=== PATIENT | female | born 1940 | race Caucasian/White ===

== ENCOUNTER 2017-01-31 18:39 | Observation (INO) | payer MEDICARE, BC ==
--- NOTE | 2017-01-31 19:05 | EKG REPORT ---
SEVERITY:- OTHERWISE NORMAL ECG - SINUS RHYTHM VENTRICULAR PREMATURE COMPLEX : Confirmed by: Mercedez Simms MD 31-Jan-2017 19:05:30
[2017-01-31] MEDS ORDERED: NITROGLYCERIN 0.4 MG/TAB 25 TAB/BOTTLE SL ONE (20:38)
[2017-01-31] MEDS ORDERED: ASPIRIN 81 MG TABLET, CHEWABLE PO ONE (20:38)
--- NOTE | 2017-01-31 20:38 | ER Document Report ---
ED Medical Screen (RME) - General Chief Complaint: Chest Pain Stated Complaint: CHEST PAIN Mode of Arrival: Ambulatory Information source: Patient TRAVEL OUTSIDE OF THE [place] IN LAST 30 DAYS: No - HPI Onset: This evening - BEFORE SUPPER Onset/Duration: Sudden, Constant Quality of pain: Other - "NERVOUS" Severity: Mild Associated Symptoms: Chest pain, Nausea. denies: Shortness of breath, Sweating Exacerbated by: Denies Relieved by: Denies Similar symptoms previously: Yes - WITH HIGH BP Recently seen / treated by doctor: No - Related Data Smoking: Non-smoker Frequency of alcohol use: None Drug Abuse: None Allergies/Adverse Reactions: No Known Allergies Allergy (Verified 07/14/12 09:53) Past Medical History - General Information source: Patient - Social History Cigarette use (# per day): No Chew tobacco use (# tins/day): No Frequency of alcohol use: None Drug Abuse: None Lives with: Family Family history: Hypertension - Past Medical History Cardiac Medical History: Reports: Hx Hypertension Denies: Hx Heart Attack Pulmonary Medical History: Denies: Hx Asthma Neurological Medical History: Denies: Hx Cerebrovascular Accident, Hx Seizures Endocrine Medical History: Reports: None Renal/ Medical History: Denies: Hx Peritoneal Dialysis GI Medical History: Denies: Hx Hepatitis, Hx Hiatal Hernia, Hx Ulcer Infectious Medical History: Denies: Hx Hepatitis Past Surgical History: Denies: Hx Hysterectomy, Hx Mastectomy, Hx Open Heart Surgery, Hx Pacemaker Review of Systems - Review of Systems Constitutional: No symptoms reported EENT: No symptoms reported Cardiovascular: See HPI Respiratory: No symptoms reported Gastrointestinal: See HPI Genitourinary: No symptoms reported Female Genitourinary: Post menopausal Musculoskeletal: No symptoms reported Neurological/Psychological: No symptoms reported Physical Exam - Vital signs Vitals: Temp Pulse BP Pulse Ox 97.8 F 85 188/92 H 99 01/31/17 19:34 01/31/17 19:34 01/31/17 19:34 01/31/17 19:34 Interpretation: Hypertensive. No: Tachycardic, Tachypneic Course - Vital Signs Vital signs: Temp Pulse Resp BP Pulse Ox 97.8 F 85 188/92 H 99 01/31/17 19:34 01/31/17 19:34 01/31/17 19:34 01/31/17 19:34
[2017-01-31 20:59] LABS: ABSOLUTE BASOPHILS # (AUTO) 0.1 10^3/uL (0.0-0.2); ABSOLUTE EOSINOPHILS # (AUTO) 0.1 10^3/uL (0.0-0.6); ABSOLUTE LYMPHOCYTES (AUTO) 1.2 10^3/uL (0.5-4.7); ABSOLUTE MONOCYTES (AUTO) 0.6 10^3/uL (0.1-1.4); ABSOLUTE NEUT (AUTO) 5.3 10^3/uL (1.7-8.2); BASOPHILS % (AUTO) 0.8 % (0-2); EOSINOPHILS % (AUTO) 0.9 % (0-6); HEMATOCRIT 37.7 % (36.0-47.0); HEMOGLOBIN 12.5 g/dL (12.0-15.5); HGB HCT DIFFERENCE -0.2; LYMPHOCYTES % (AUTO) 16.4 % (13-45); MEAN CORPUSCULAR HEMOGLOBIN 30.6 pg (27.0-33.4); MEAN CORPUSCULAR HGB CONC 33.1 g/dL (32.0-36.0); MEAN CORPUSCULAR VOLUME 93 fl (80-97); MONOCYTES % (AUTO) 7.8 % (3-13); RED BLOOD COUNT 4.06 10^6/uL (3.72-5.28); RED CELL DISTRIBUTION WIDTH 12.7 % (11.5-14.0); SEGMENTED NEUTROPHILS % (AUTO) 74.1 % (42-78); WHITE BLOOD COUNT 7.1 10^3/uL (4.0-10.5)
[2017-01-31 21:04] LABS: APPEARANCE,URINE CLEAR; BILIRUBIN,URINE NEGATIVE (NEGATIVE); GLUCOSE, URINE NEGATIVE (NEGATIVE); KETONES,URINE NEGATIVE (NEGATIVE); LEUKOCYTE ESTERASE,URINE NEGATIVE (NEGATIVE); NITRITE,URINE NEGATIVE (NEGATIVE); PROTEIN,URINE NEGATIVE (NEGATIVE); URINE SPECIFIC GRAVITY 1.004; UROBILINOGEN,URINE NEGATIVE mg/dL (<2.0)
[2017-01-31 21:14] LABS: ALANINE AMINOTRANSFERASE 28 U/L (9-52); ALBUMIN 4.9 g/dL (3.5-5.0); ALKALINE PHOSPHATASE 124 U/L (38-126); ANION GAP 12 (5-19); ASPARTATE AMINO TRANSFERASE 24 U/L (14-36); BILIRUBIN,DIRECT 0.2 mg/dL (0.0-0.4); BILIRUBIN,TOTAL 0.5 mg/dL (0.2-1.3); BLOOD UREA NITROGEN 23 mg/dL (7-20); CARBON DIOXIDE 29 mmol/L (22-30); CHLORIDE 96 mmol/L (98-107); CREATINE KINASE 103 U/L (30-135); CREATININE RESULT 1.44 mg/dL (0.52-1.25); GLUCOSE 121 mg/dL (75-110); POTASSIUM 3.9 mmol/L (3.6-5.0); SODIUM 137.3 mmol/L (137-145); TOTAL PROTEIN 7.6 g/dL (6.3-8.2)
[2017-01-31 21:26] LABS: TROPONIN I < 0.012 ng/mL
[2017-02-01] MEDS ORDERED: NITROGLYCERIN 2% OINTMENT 1 GM PACKET TP ONE (01:05)
[2017-02-01] MEDS ORDERED: ASPIRIN 81 MG TABLET, CHEWABLE ONE (01:25)
--- NOTE | 2017-02-01 02:26 | ER Document Report ---
ED General - General Chief Complaint: Chest Pain Stated Complaint: CHEST PAIN Mode of Arrival: Ambulatory Notes: Patient is very pleasant 76 show female who presents with complaint of high blood pressure as well as feeling of pressure in her chest and also sensation as if she might have to belch. She says also with the high blood pressure she feels a sensation "going through her veins. She says the sensation is different than the sensation that she has no chest which feels more like a pressure type sensation in her chest. She's never had this sensation before. She says her blood pressures usually fairly well controlled with her blood pressure medications. She has not missed any dosages of her blood pressure medication. No recent changes in the dosage of her blood pressure medication. No recent fevers or infections. No trauma. No difficulty breathing. No other complaints at this time. No history of coronary artery disease. TRAVEL OUTSIDE OF THE [place] IN LAST 30 DAYS: No - Related Data Allergies/Adverse Reactions: No Known Allergies Allergy (Verified 07/14/12 09:53) Home Medications: Current Home Medications Anastrozole [Anastrozole] 1 tab PO DAILY 02/01/17 [History] Aspirin [Aspirin 81 mg Chewable Tablet] 81 mg PO DAILY 02/01/17 [History] Calcium Carb & Citrate/Vit D3 [Calcium + D3 ER Tablet] 1 tab PO DAILY 02/01/17 [ History] Cholecalciferol (Vitamin D3) [Vitamin D3 1000 Unit Tablet] 1 tab PO DAILY [History] Citalopram Hydrobromide [Celexa 20 mg Tablet] 1 tab PO BID 02/01/17 [History] Lactobac Cmb #3/Fos/Pantethine [Probiotic & Acidophilus Cap] 1 cap PO DAILY 02/14 [History] Valsartan/Hydrochlorothiazide [Diovan Hct 160-12.5 mg Tab] 1 tab PO DAILY [History] Zolpidem Tartrate [Zolpidem Tartrate] 1 tab PO QHS 02/01/17 [History] Past Medical History - General Information source: Patient - Social History Smoking Status: Never Smoker Cigarette use (# per day): No Chew tobacco use (# tins/day): No Frequency of alcohol use: None Drug Abuse: None Lives with: Family Family History: Reviewed & Not Pertinent Patient has suicidal ideation: No Patient has homicidal ideation: No - Past Medical History Cardiac Medical History: Reports: Hx Hypertension Denies: Hx Heart Attack Pulmonary Medical History: Denies: Hx Asthma Neurological Medical History: Denies: Hx Cerebrovascular Accident, Hx Seizures Endocrine Medical History: Reports: None Renal/ Medical History: Denies: Hx Peritoneal Dialysis GI Medical History: Denies: Hx Hepatitis, Hx Hiatal Hernia, Hx Ulcer Infectious Medical History: Denies: Hx Hepatitis Past Surgical History: Denies: Hx Hysterectomy, Hx Mastectomy, Hx Open Heart Surgery, Hx Pacemaker - Immunizations Hx Diphtheria, Pertussis, Tetanus Vaccination: No Review of Systems - Review of Systems Notes: My Normal Review Basic REVIEW OF SYSTEMS: CONSTITUTIONAL : Denies fever, chills, or sweats. Denies recent illness. EENT: Denies eye, ear, throat, or mouth pain or symptoms. Denies nasal or sinus congestion. CARDIOVASCULAR: Chest pressure RESPIRATORY: Denies cough, cold, or chest congestion. Denies shortness of breath, difficulty breathing, or wheezing. GASTROINTESTINAL: Denies abdominal pain. Denies nausea, vomiting, or diarrhea. Denies constipation. Last BM: MUSCULOSKELETAL: Denies neck or back pain or joint pain or swelling. SKIN: Denies rash or skin lesions. NEUROLOGICAL: Denies altered mental status or loss of consciousness. Denies headache. Denies weakness or paralysis or loss of use of either side. Denies problems with gait or speech. Denies sensory or motor loss. ALL OTHER SYSTEMS REVIEWED AND NEGATIVE. Physical Exam - Vital signs Vitals: Temp Pulse BP Pulse Ox 97.8 F 85 188/92 H 99 01/31/17 19:34 01/31/17 19:34 01/31/17 19:34 01/31/17 19:34 - Notes Notes: General Appearance: Well nourished, alert, cooperative, no acute distress, no obvious discomfort. Well-appearing. Vitals: reviewed, See vital signs table. Head: no swelling or tenderness to the head Eyes: PERRL, EOMI, Conjuctiva clear Mouth: No decreasd moisture Lungs: No wheezing, No rales, No rhonci, No accessory muscle use, good air exchange bilaterally. Heart: Normal rate, Regular rythm, No murmur, no rub Abdomen: Normal BS, soft, No rigidity, No abdominal tenderness, No guarding, no rebound, no abdominal masses, no organomegaly Extremities: strength 5/5 in all extremities, good pulses in all extremities, no swelling or tenderness in the extremities, no edema. Skin: warm, dry, appropriate color, no rash Neuro: speech clear, oriented x 3, normal affect, responds appropriately to questions. Course - Vital Signs Vital signs: Temp Pulse Resp BP Pulse Ox 97.8 F 76 16 144/67 H 100 02/01/17 05:36 02/01/17 05:36 02/01/17 05:36 02/01/17 05:36 02/01/17 05:36 - Laboratory Result Diagrams: 01/31/17 20:45 01/31/17 20:45 Laboratory results interpreted by me: 01/31/17 01/31/17 20:45 20:45 Chloride 96 L BUN 23 H Creatinine 1.44 H Est GFR ( Amer) 43 L Est GFR (Non-Af Amer) 35 L Glucose 121 H Urine Blood MODERATE H - Transfer of Care Notes: 02/01/17 05:[address] Nit[address] and the patient. This did help with the pressure in her chest. It is slowly decreasing her diastolic blood pressure. Patient appears have some hypertensive urgency. She describes her chest pain as more of a pressure type sensation and also some indigestion comparison that she feels like she has to belch but cannot. She does not have anything else to suggest that Windy acid reflux. He met she has this in conjunction with her high blood pressure to think is appropriate to do workup for hypertensive urgency with associated chest pressure. Patient is agreeable to staying. I did speak with the hospitalist who agrees to admit the patient. Dictation of this chart was performed using voice recognition software; therefore, there may be some unintended grammatical errors. Discharge - Discharge Clinical Impression: Chest pressure Hypertension Qualifiers: Hypertension type: essential hypertension Qualified Code(s): I10 - Essential ( primary) hypertension Admitting Provider: Hospitalist Unit Admitted: Telemetry
[2017-02-01] MEDS ORDERED: NITROGLYCERIN 0.4 MG/TAB 25 TAB/BOTTLE SL PRN (02:27)
[2017-02-01] MEDS ORDERED: HYDRALAZINE HCL INJ/PF 20 MG/1 ML SDV IV PRN (02:30)
--- NOTE | 2017-02-01 04:34 | PDOC H&P ---
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 In the emergency room she is evaluated and found to have a blood pressure of over 200 systolic, receiving nitroglycerin dropping her blood pressure to 170/80 and relief of symptoms during this time the emergency room she's had a single episode with radiation to the back and she's referred to the hospitalist for admission she denies recent change in medications or diet. She does suffer from significant grief as she is recently and poor health of her close friends. Past Medical History Cardiac Medical History: Reports: Hypertension Denies: Myocardial Infarction Pulmonary Medical History: Denies: Asthma Neurological Medical History: Denies: Seizures Endocrine Medical History: Reports: None GI Medical History: Denies: Hepatitis, Hiatal Hernia Hematology: Denies: Anemia, Sickle Cell Disease Past Surgical History Past Surgical History: Denies: Amputation, Hysterectomy, Mastectomy, Pacemaker Social History Information Source: Patient Lives with: Family Smoking Status: Never Smoker Frequency of Alcohol Use: None Past Social History Note: Patient consumes approximately 4 caffeinated beverages per day admits trouble with sleep, depression and grief - Advance Directive Resuscitation Status: Full Code Family History Family History: Hypertension Parental Family History Reviewed: Yes Children Family History Reviewed: Yes Sibling(s) Family History Reviewed.: Yes Medication/Allergy Home Medications: Lovastatin [Mevacor] 1 tab PO DAILY 07/14/12 Anastrozole [Anastrozole] 1 tab PO DAILY 02/01/17 Aspirin [Aspirin 81 mg Chewable Tablet] 81 mg PO DAILY 02/01/17 Calcium Carb & Citrate/Vit D3 [Calcium + D3 ER Tablet] 1 tab PO DAILY 02/01/17 Cholecalciferol (Vitamin D3) [Vitamin D3 1000 Unit Tablet] 1 tab PO DAILY Citalopram Hydrobromide [Celexa 20 mg Tablet] 1 tab PO BID 02/01/17 Lactobac Cmb #3/Fos/Pantethine [Probiotic & Acidophilus Cap] 1 cap PO DAILY 02/14 Valsartan/Hydrochlorothiazide [Diovan Hct 160-12.5 mg Tab] 1 tab PO DAILY Zolpidem Tartrate [Zolpidem Tartrate] 1 tab PO QHS 02/01/17 Allergies/Adverse Reactions: No Known Allergies Allergy (Verified 07/14/12 09:53) Review of Systems Constitutional: ABSENT: chills, fever(s), headache(s), weight gain, weight loss Eyes: ABSENT: visual disturbances Ears: ABSENT: hearing changes Cardiovascular: ABSENT: chest pain, dyspnea on exertion, edema, orthropnea, palpitations Respiratory: ABSENT: cough, hemoptysis Gastrointestinal: ABSENT: abdominal pain, constipation, diarrhea, hematemesis, hematochezia, nausea, vomiting Genitourinary: ABSENT: dysuria, hematuria Musculoskeletal: ABSENT: joint swelling Integumentary: ABSENT: rash, wounds Neurological: ABSENT: abnormal gait, abnormal speech, confusion, dizziness, focal weakness, syncope Psychiatric: PRESENT: depression, other - Grief secondary to Recently and friends in poor health. ABSENT: anxiety, homidical ideation, suicidal ideation Endocrine: ABSENT: cold intolerance, heat intolerance, polydipsia, polyuria Hematologic/Lymphatic: ABSENT: easy bleeding, easy bruising Physical Exam Vital Signs: Temp Pulse Resp BP Pulse Ox 97.8 F 88 13 163/81 H 96 01/31/17 19:34 02/01/17 00:22 02/01/17 02:31 02/01/17 03:01 02/01/17 03:00 General appearance: PRESENT: no acute distress, well-developed, well-nourished Head exam: PRESENT: atraumatic, normocephalic Eye exam: PRESENT: conjunctiva pink, EOMI, PERRLA. ABSENT: scleral icterus Ear exam: PRESENT: normal external ear exam Mouth exam: PRESENT: moist, tongue midline Neck exam: ABSENT: carotid bruit, JVD, lymphadenopathy, thyromegaly Respiratory exam: PRESENT: clear to auscultation dale. ABSENT: rales, rhonchi, wheezes Cardiovascular exam: PRESENT: RRR. ABSENT: diastolic murmur, rubs, systolic murmur Pulses: PRESENT: normal dorsalis pedis pul Vascular exam: PRESENT: normal capillary refill GI/Abdominal exam: PRESENT: normal bowel sounds, soft. ABSENT: distended, guarding, mass, organolmegaly, rebound, tenderness Rectal exam: PRESENT: deferred Extremities exam: PRESENT: full ROM. ABSENT: calf tenderness, clubbing, pedal edema Neurological exam: PRESENT: alert, awake, oriented to person, oriented to place , oriented to time, oriented to situation, CN II-XII grossly intact. ABSENT: motor sensory deficit Psychiatric exam: PRESENT: appropriate affect, normal mood. ABSENT: homicidal ideation, suicidal ideation Skin exam: PRESENT: dry, intact, warm. ABSENT: cyanosis, rash Results Impressions: Chest X-Ray 01/31/17 20:39 IMPRESSION: NO ACUTE RADIOGRAPHIC FINDING IN THE CHEST. Assessment & Plan - Diagnosis (1) Hypertensive emergency Is this a current diagnosis for this admission?: YesPlan: Likely multifactorial secondary to underlying hypertension and grief that said I 'll optimize her medications on a when necessary basis and anterior home regiment and otherwise evaluate for acute coronary syndrome and risk factors for coronary artery disease (2) Chest pressure Is this a current diagnosis for this admission?: YesPlan: Please see #1 (3) Grief Is this a current diagnosis for this admission?: YesPlan: Consider increased SSRI dose versus referral to mental health, denies homicidal or suicidal ideation - Time Time Spent: 30 to 50 Minutes - Inpatient Certification Medical Necessity: Need Close Monitoring Due to Risk of Patient Decompensation
[2017-02-01 05:44] LABS: Direct HDL 102 mg/dL (>40); TRIGLYCERIDES 79 mg/dL (<150)
[2017-02-01 05:55] LABS: DIRECT LDL 87 mg/dL (<100)
[2017-02-01 05:57] LABS: CREATINE KINASE MB 0.42 ng/mL (<4.55); TROPONIN I 0.029 ng/mL
[2017-02-01] MEDS: LOSARTAN POTASSIUM 50 MG TABLET PO SCH (09:32)
[2017-02-01] MEDS ORDERED: CITALOPRAM HYDROBROMIDE 20 MG TABLET PO SCH (10:00)
[2017-02-01] MEDS ORDERED: (PENDING PHARMACY ID) (Valsartan/Hydrochlorothiazide [Diovan Hct 160-12.5 Mg Tab] 1 TAB) PO SCH (10:00)
[2017-02-01] MEDS ORDERED: NORMAL SALINE 1000 ML 1,000 ML IV PRN (10:41)
[2017-02-01] MEDS ORDERED: REGADENOSON INJ 0.4 MG/5 ML DISP.SYRIN IV ONE (10:58)
[2017-02-01] MEDS ORDERED: AMINOPHYLLINE INJ/PF 250 MG/10 ML SDV IV ONE (10:58)
[2017-02-01] MEDS ORDERED: SIMETHICONE 40 MG/0.6 ML DROPS 30ML PO ONE (11:30)
[2017-02-01] MEDS ORDERED: MAG HYDROX/AL HYDROX/SIMETH SUSP 30 ML UDCUP PO ONE (11:30)
[2017-02-01] MEDS ORDERED: SIMETHICONE 80 MG TAB.CHEW PO ONE (11:30)
[2017-02-01] MEDS ORDERED: METOCLOPRAMIDE HCL ORAL SOLN 10 MG/10 ML UDCUP PO ONE (11:30)
[2017-02-01] MEDS ORDERED: LIDOCAINE 2% VISCOUS SOLN 20 ML UDCUP PO ONE (11:30)
[2017-02-01 12:11] LABS: CREATINE KINASE MB 0.44 ng/mL (<4.55); TROPONIN I 0.014 ng/mL
[2017-02-01] MEDS ORDERED: TRAMADOL HCL 50 MG TABLET PO PRN (12:36)
--- NOTE | 2017-02-01 13:11 | EKG REPORT ---
SEVERITY:- BORDERLINE ECG - SINUS RHYTHM BORDERLINE PROLONGED QT INTERVAL : Confirmed by: Mercedez Simms MD 01-Feb-2017 13:10:12
--- NOTE | 2017-02-01 15:20 | PDOC PROGRESS REPORT ---
Subjective Progress Note for:: 02/01/17 Subjective:: The patient was seen earlier today on rounds. The patient notes persistent indigestion. The patient also notes frequent belching. The patient admits to intermittent sensation of "full body heat" which prompted her to come to the emergency department for evaluation. The patient admits to persistent nausea. The patient denies any vomiting, diarrhea, shortness of breath, dizziness, heart palpitations, fevers, or chills. The patient has remained afebrile. Blood pressures have been in a good range. When prompted the patient voices no other concerns at this time. Review of systems: The rest of the review of systems is negative. Brief history: Patient was admitted overnight with symptoms of chest discomfort and tightness. A she gets significant symptoms that are consistent with gastric reflux as well. Patient has had a history of chemotherapy for previous breast cancer which has left her with an element of chronic kidney disease. The patient estimates her creatinine is around 1.2 range at baseline. The patient symptoms have persisted overnight. Physical Exam Vital Signs: Temp Pulse Resp BP Pulse Ox 98.0 F 85 17 136/70 H 100 02/01/17 11:22 02/01/17 11:22 02/01/17 11:22 02/01/17 11:22 02/01/17 11:22 Intake & Output 01/30/17 01/31/17 02/01/17 23:59 23:59 23:59 Intake Total 960 Balance 960 General appearance: PRESENT: no acute distress, cooperative, well-developed, well-nourished Head exam: PRESENT: atraumatic, normocephalic Eye exam: PRESENT: conjunctiva pink, EOMI, PERRLA. ABSENT: scleral icterus Ear exam: PRESENT: normal external ear exam Mouth exam: PRESENT: moist, tongue midline Neck exam: ABSENT: carotid bruit, JVD, lymphadenopathy, thyromegaly Respiratory exam: PRESENT: clear to auscultation dale, symmetrical, unlabored. ABSENT: rales, rhonchi, tachypnea, wheezes Cardiovascular exam: PRESENT: RRR. ABSENT: diastolic murmur, rubs, systolic murmur Pulses: PRESENT: normal dorsalis pedis pul Vascular exam: PRESENT: normal capillary refill GI/Abdominal exam: PRESENT: normal bowel sounds, soft. ABSENT: distended, guarding, mass, organolmegaly, rebound, tenderness Rectal exam: PRESENT: deferred Extremities exam: PRESENT: full ROM. ABSENT: calf tenderness, clubbing, pedal edema Neurological exam: PRESENT: alert, awake, oriented to person, oriented to place , oriented to time, oriented to situation, CN II-XII grossly intact. ABSENT: motor sensory deficit Psychiatric exam: PRESENT: appropriate affect, normal mood. ABSENT: homicidal ideation, suicidal ideation Skin exam: PRESENT: dry, intact, warm. ABSENT: cyanosis, rash Results Laboratory Results: Labs- Last Values WBC 7.1 10^3/uL (4.0-10.5) 01/31/17 20:45 RBC 4.06 10^6/uL (3.72-5.28) 01/31/17 20:45 Hgb 12.5 g/dL (12.0-15.5) 01/31/17 20:45 Hct 37.7 % (36.0-47.0) 01/31/17 20:45 MCV 93 fl (80-97) 01/31/17 20:45 MCH 30.6 pg (27.0-33.4) 01/31/17 20:45 MCHC 33.1 g/dL (32.0-36.0) 01/31/17 20:45 RDW 12.7 % (11.5-14.0) 01/31/17 20:45 Plt Count 245 10^3/uL (150-450) 01/31/17 20:45 Seg Neutrophils % 74.1 % (42-78) 01/31/17 20:45 Lymphocytes % 16.4 % (13-45) 01/31/17 20:45 Monocytes % 7.8 % (3-13) 01/31/17 20:45 Eosinophils % 0.9 % (0-6) 01/31/17 20:45 Basophils % 0.8 % (0-2) 01/31/17 20:45 Absolute Neutrophils 5.3 10^3/uL (1.7-8.2) 01/31/17 20:45 Absolute Lymphocytes 1.2 10^3/uL (0.5-4.7) 01/31/17 20:45 Absolute Monocytes 0.6 10^3/uL (0.1-1.4) 01/31/17 20:45 Absolute Eosinophils 0.1 10^3/uL (0.0-0.6) 01/31/17 20:45 Absolute Basophils 0.1 10^3/uL (0.0-0.2) 01/31/17 20:45 Sodium 137.3 mmol/L (137-145) 01/31/17 20:45 Potassium 3.9 mmol/L (3.6-5.0) 01/31/17 20:45 Chloride 96 mmol/L (98-107) L 01/31/17 20:45 Carbon Dioxide 29 mmol/L (22-30) 01/31/17 20:45 Anion Gap 12 (5-19) 01/31/17 20:45 BUN 23 mg/dL (7-20) H 01/31/17 20:45 Creatinine 1.44 mg/dL (0.52-1.25) H 01/31/17 20:45 Est GFR ( Amer) 43 (>60) L 01/31/17 20:45 Est GFR (Non-Af Amer) 35 (>60) L 01/31/17 20:45 Glucose 121 mg/dL (75-110) H 01/31/17 20:45 Calcium 10.0 mg/dL (8.4-10.2) 01/31/17 20:45 Total Bilirubin 0.5 mg/dL (0.2-1.3) 01/31/17 20:45 Direct Bilirubin 0.2 mg/dL (0.0-0.4) 01/31/17 20:45 Indirect Bilirubin Not Reportable 01/31/17 20:45 Neonat Total Bilirubin Not Reportable 01/31/17 20:45 AST 24 U/L (14-36) 01/31/17 20:45 ALT 28 U/L (9-52) 01/31/17 20:45 Alkaline Phosphatase 124 U/L (38-126) 01/31/17 20:45 Creatine Kinase 103 U/L (30-135) 01/31/17 20:45 CK-MB (CK-2) 0.44 ng/mL (<4.55) 02/01/17 11:12 Troponin I 0.014 ng/mL 02/01/17 11:12 Total Protein 7.6 g/dL (6.3-8.2) 01/31/17 20:45 Albumin 4.9 g/dL (3.5-5.0) 01/31/17 20:45 Triglycerides 79 mg/dL (<150) 02/01/17 05:04 Cholesterol 217.20 mg/dL (0-200) H 02/01/17 05:04 LDL Cholesterol Direct 87 mg/dL (<100) 02/01/17 05:04 VLDL Cholesterol 16.0 mg/dL (10-31) 02/01/17 05:04 HDL Cholesterol 102 mg/dL (>40) 02/01/17 05:04 Urine Color COLORLESS 01/31/17 20:45 Urine Appearance CLEAR 01/31/17 20:45 Urine pH 7.0 (5.0-9.0) 01/31/17 20:45 Ur Specific Humphrey 1.004 01/31/17 20:45 Urine Protein NEGATIVE mg/dL (NEGATIVE) 01/31/17 20:45 Urine Glucose (UA) NEGATIVE mg/dL (NEGATIVE) 01/31/17 20:45 Urine Ketones NEGATIVE mg/dL (NEGATIVE) 01/31/17 20:45 Urine Blood MODERATE (NEGATIVE) H 01/31/17 20:45 Urine Nitrite NEGATIVE (NEGATIVE) 01/31/17 20:45 Urine Bilirubin NEGATIVE (NEGATIVE) 01/31/17 20:45 Urine Urobilinogen NEGATIVE mg/dL (<2.0) 01/31/17 20:45 Ur Leukocyte Esterase NEGATIVE (NEGATIVE) 01/31/17 20:45 Urine WBC (Auto) 2 /HPF 01/31/17 20:45 Urine RBC (Auto) 5 /HPF 01/31/17 20:45 Urine Bacteria (Auto) TRACE /HPF 01/31/17 20:45 Squamous Epi Cells Auto <1 /HPF 01/31/17 20:45 Urine Mucus (Auto) RARE /LPF 01/31/17 20:45 Urine Ascorbic Acid NEGATIVE (NEGATIVE) 01/31/17 20:45 Impressions: Chest X-Ray 01/31/17 20:39 IMPRESSION: NO ACUTE RADIOGRAPHIC FINDING IN THE CHEST. Assessment & Plan - Diagnosis (1) Chest pressure Is this a current diagnosis for this admission?: YesPlan: Will observe the patient continues telemetry unit, obtain serial cardiac enzymes , repeat EKG, and obtain lipid panel in the a.m. Given the patient's risk factors will schedule for Cardiolite stress test. (2) Hypertensive emergency Is this a current diagnosis for this admission?: YesPlan: Have encouraged medical compliance. Blood pressures are much improved this time with resumption of home medications (3) Chronic kidney disease, stage III (moderate) Is this a current diagnosis for this admission?: YesPlan: The patient does admit to decrease in oral intake will hydrate with a liter of fluids and follow. (4) GERD (gastroesophageal reflux disease) Qualifiers: Esophagitis presence: esophagitis presence not specified Qualified Code(s): K21.9 - Gastro-esophageal reflux disease without esophagitis Is this a current diagnosis for this admission?: YesPlan: Given a GI cocktail additional simethicone and start the patient on twice a day PPI therapy (5) Grief Is this a current diagnosis for this admission?: Yes - Time Time Spent with patient: on this visit including assessment, plan, physical examination, family meeting, grief discussion, specialty collaboration, and patient education is 60 minutes. Time Spent with patient: 35 or more minutes Medications reviewed and adjusted accordingly: Yes Anticipated discharge: Home Within: within 24 hours Disposition: The patient is a full code. Pending patient's symptomatology and diagnostic findings will reevaluate in the a.m.
[2017-02-01 18:05] LABS: CREATINE KINASE MB 0.33 ng/mL (<4.55)
[2017-02-01] MEDS: LANSOPRAZOLE 30 MG TAB.RAP.DR PO SCH (18:06)
[2017-02-01] MEDS: CITALOPRAM HYDROBROMIDE 20 MG TABLET PO SCH (18:06)
[2017-02-01 18:09] LABS: TROPONIN I < 0.012 ng/mL
[2017-02-01] MEDS ORDERED: LOVASTATIN 20 MG PO SCH (22:00)
[2017-02-01] MEDS ORDERED: ANASTROZOLE 1 MG TABLET PO SCH (22:00)
[2017-02-01] MEDS ORDERED: ATORVASTATIN CALCIUM 10 MG TABLET PO SCH (22:00)
[2017-02-01] MEDS ORDERED: DIPHENHYDRAMINE HCL 25 MG CAPSULE PO SCH (22:00)
[2017-02-02] MEDS: LANSOPRAZOLE 30 MG TAB.RAP.DR PO SCH (05:21)
[2017-02-02 05:27] LABS: ABSOLUTE EOSINOPHILS # (AUTO) 0.2 10^3/uL (0.0-0.6); ABSOLUTE LYMPHOCYTES (AUTO) 1.4 10^3/uL (0.5-4.7); ABSOLUTE MONOCYTES (AUTO) 0.6 10^3/uL (0.1-1.4); ABSOLUTE NEUT (AUTO) 2.3 10^3/uL (1.7-8.2); EOSINOPHILS % (AUTO) 4.1 % (0-6); HEMATOCRIT 32.1 % (36.0-47.0); HEMOGLOBIN 10.7 g/dL (12.0-15.5); LYMPHOCYTES % (AUTO) 30.8 % (13-45); MEAN CORPUSCULAR HEMOGLOBIN 30.8 pg (27.0-33.4); MEAN CORPUSCULAR HGB CONC 33.2 g/dL (32.0-36.0); MEAN CORPUSCULAR VOLUME 93 fl (80-97); MONOCYTES % (AUTO) 13.4 % (3-13); RED BLOOD COUNT 3.47 10^6/uL (3.72-5.28); SEGMENTED NEUTROPHILS % (AUTO) 50.7 % (42-78); WHITE BLOOD COUNT 4.6 10^3/uL (4.0-10.5)
[2017-02-02] MEDS ORDERED: (PENDING PHARMACY ID) (Zolpidem Tartrate [Zolpidem Tartrate] 10 MG) PO PRN (09:57)
[2017-02-02] MEDS ORDERED: CHOLECALCIFEROL (D3) 1,000 UNIT TABLET PO SCH (10:00)
[2017-02-02] MEDS ORDERED: VALSARTAN 160 MG TABLET PO SCH (10:00)
[2017-02-02] MEDS ORDERED: CALCIUM CARBONATE 500 MG TABLET PO SCH (10:00)
[2017-02-02] MEDS ORDERED: LACTOBACILLUS ACIDOPHILUS 250 MG TAB PO SCH (10:00)
[2017-02-02] MEDS ORDERED: ASPIRIN 81 MG TABLET, ENT COATED PO SCH (10:00)
[2017-02-02] MEDS: LOSARTAN POTASSIUM 50 MG TABLET PO SCH (10:22)
[2017-02-02] MEDS: CITALOPRAM HYDROBROMIDE 20 MG TABLET PO SCH (10:23)
[2017-02-02] MEDS ORDERED: ZOLPIDEM TARTRATE 5 MG TABLET PO PRN (10:29)
[2017-02-02 12:37] VITALS: BP 129/59
--- NOTE | 2017-02-02 13:43 | DRAGON STRESS TEST REPORT ---
INTRAVENOUS LEXISCAN CARDIOLITE STRESS TEST USING SINGLE PHOTON EMMISION COMPUTERIZED TOMOGRAPHIC. DATE OF PROCEDURE: February 01, 2017 INDICATION : Chest pain CARDIAC RISK FACTORS: Hypertension, dyslipidemia RESTING EKG: Sinus rhythm, no Baseline ST segment changes noted STRESS EKG: No significant changes noted with LexiScan bolus REASON FOR TERMINATION: Protocol. PROCEDURE REPORT: Baseline heart rate 73 beats per minute with blood pressure of 124/57. Patient had no significant complaints. Heart rate at 2 minutes post bolus and 100 with a blood pressure of and 123/47. 3 minutes post bolus heart rate 92 with blood pressure of 124/49. No significant EKG changes were noted. Patient had no significant complaints during the procedure or postprocedure. Patient injected with Aminophyllin 75 mg at 3 minutes or later after Lexiscan bolus. CONCLUSIONS: Normal EKG and hemodynamic response to IV LexiScan. NUCLEAR DATA: At rest the patient was given 10.84 millicuries of technetium 99 sestamibi injected intravenously. As per protocol rest gated SPECT images were obtained. Subsequently the patient was given intravenous LexiScan at a dose of 0.4 mg in 5 mL intravenously, followed by flush with normal saline. Subsequently the stress dose of 31.2 millicuries of technetium 99 sestamibi was injected intravenously. As per protocol stress gated images were obtained. NUCLEAR INTERPRETATION: Both raw and processed data were used for interpretation. Visual, qualitative, computer-generated quantitative data was used. There was good myocardial uptake of technetium compound. Motion artifact and soft tissue attenuations were noted. Increased visceral uptake was noted. No definitive areas of transient perfusion defect noted. No definitive areas of fixed perfusion defect or scars noted. EKG gated imaging showed LV EF at 59 %, rest and stress gated EF similar visually. T. I D. ratio was 1.30. Lung heart ratio noted to be within normal limits 0.38. No significant extracardiac and abnormal radiotracer activities were noted. RV free wall uptake was noted to be WNL. IMPRESSION: Also refer to comments under nuclear interpretation. Also test results needs to be interpreted in the context of pretest probability. 1. There is no definitive scintigraphic evidence of LexiScan induced myocardial ischemia. 2. There is no definitive scintigraphic evidence of myocardial infarction/scar. 3. EKG gated imaging shows left ejection fraction of approximately 59 %. 4. Borderline transient ischemic dilatation was noted. This is felt to be not significant visually when images were properly matched. However would recommend close cardiology follow-up. Clinical correlation requested as occasionally single vessel disease or balanced ischemia could be missed. In approximately 10% of the cases Lexiscan may not cause adequate vasodilatory stress. RECOMMENDATIONS: Aggressive risk factor modification, medical therapy. Inability to exercise by itself can lead to increased cardiovascular event risks. Consider cardiology consultation and or follow-up if clinically indicated. I AM AVAILABLE FOR CARDIOLOGY CONSULTATION AND FOLLOWUP IF REQUESTED BY PMTwin Garrison M.D., VAISHALI [employer] senior systems engineer, Board certified in cardiovascular diseases, Nuclear cardiology, Echocardiography Cardiac CT and cardiac MRI Ph. [phone] [facility]
--- NOTE | 2017-02-02 16:16 | PDOC DISCHARGE SUMMARY ---
General - Admit/Disc Date/PCP Admission Date/Primary Care Provider: 02/01/17 02:27 ANAYA DRISCOLL NP Discharge Date: 02/02/17 - Discharge Diagnosis (1) Chest pressure Is this a current diagnosis for this admission?: YesSummary: Most likely related to GI origin. She will be started on omeprazole 40 mg daily follow-up with her primary care provider. She underwent Cardiolite stress test which was negative for ischemia. All troponins were negative 3. (2) Chronic kidney disease, stage III (moderate) Is this a current diagnosis for this admission?: YesSummary: Avoid nephrotoxic drugs and dosages (3) GERD (gastroesophageal reflux disease) Is this a current diagnosis for this admission?: YesSummary: Patient was started on omeprazole 40 mg daily I will follow-up with her primary (4) Grief Is this a current diagnosis for this admission?: YesSummary: Patient with recent loss of spouse. - Additional Information Resuscitation Status: Full Code Discharge Activity: Activity As Tolerated, Balance Activity w/Rest Home Medications: Anastrozole [Arimidex 1 mg Tablet] 1 mg PO QHS 02/01/17 Aspirin [Aspirin EC] 81 mg PO DAILY 02/01/17 Calcium 1200 Mg/Vitamin D3 1000 Iu 1 ea PO DAILY 02/01/17 Cholecalciferol (Vitamin D3) [Vitamin D3 2000 unit Tablet] 2,000 unit PO DAILY 02/01/17 Citalopram Hydrobromide [Celexa 20 mg Tablet] 20 mg PO BID 02/01/17 Cyanocobalamin (Vitamin B-12) [Vitamin B-12 Inj 1000 Mcg/1 ml Vial] 1,000 mcg IM .MONTHLY 02/01/17 Lovastatin [Mevacor] 20mg 1 ea PO QHS 02/01/17 Probiotic Acidophilus 100 Million 1 ea PO DAILY 02/01/17 Valsartan/Hydrochlorothiazide [Diovan Hct 160-12.5 mg Tab] 1 each PO DAILY 02/01 Zolpidem Tartrate [Zolpidem Tartrate] 10 mg PO HSP PRN 02/01/17 Citalopram Hydrobromide [Celexa 20 mg Tablet] 20 mg PO BID tablet 02/02/17 Omeprazole 40 mg PO DAILY #30 capsule. 02/02/17 History of Present Illness Patient complains of: Midsternal chest pressure and belching History of Present Illness: PRINCESS CROWLEY is a 76 year old female with a past medical history of dyslipidemia, remote breast cancer, depression and hypertension who been her usual state of health until approximately 8 hours prior to presentation having retrosternal chest tightness, without palpitations shortness of breath nausea vomiting and without obvious exacerbating or alleviating factors. In the emergency room she is evaluated and found to have a blood pressure of over 200 systolic, receiving nitroglycerin dropping her blood pressure to 170/80 and relief of symptoms during this time the emergency room she's had a single episode with radiation to the back and she's referred to the hospitalist for admission she denies recent change in medications or diet. She does suffer from significant grief as she is recently and poor health of her close friends. Hospital Course Hospital Course: Patient is a hospitalist service on telemetry. She had serial troponins which were all negative 3. She underwent Cardiolite stress testing which was negative. Symptoms sound more gastrointestinal in origin. We will start her on omeprazole 40 mg daily and follow-up with primary care provider. She had no further episodes of chest discomfort since admission. Physical Exam Vital Signs: Temp Pulse Resp BP Pulse Ox 97.6 F 67 16 129/59 H 100 02/02/17 15:18 02/02/17 15:18 02/02/17 15:18 02/02/17 15:18 02/02/17 15:18 Intake & Output 02/01/17 02/02/17 02/03/17 06:59 06:59 06:59 Intake Total 1360 Balance 1360 Weight 67.5 kg General appearance: PRESENT: no acute distress, well-developed, well-nourished Head exam: PRESENT: atraumatic, normocephalic Eye exam: PRESENT: conjunctiva pink, EOMI, PERRLA. ABSENT: scleral icterus Ear exam: PRESENT: normal external ear exam Mouth exam: PRESENT: moist, tongue midline Respiratory exam: PRESENT: clear to auscultation dale. ABSENT: rales, rhonchi, wheezes Cardiovascular exam: PRESENT: RRR. ABSENT: diastolic murmur, rubs, systolic murmur Pulses: PRESENT: normal dorsalis pedis pul GI/Abdominal exam: PRESENT: normal bowel sounds, soft. ABSENT: distended, guarding, mass, organolmegaly, rebound, tenderness Rectal exam: PRESENT: deferred Extremities exam: PRESENT: full ROM. ABSENT: calf tenderness, clubbing, pedal edema Neurological exam: PRESENT: alert, awake, oriented to person, oriented to place , oriented to time, oriented to situation, CN II-XII grossly intact. ABSENT: motor sensory deficit Psychiatric exam: PRESENT: appropriate affect, normal mood. ABSENT: homicidal ideation, suicidal ideation Skin exam: PRESENT: dry, intact, warm. ABSENT: cyanosis, rash Results Laboratory Results: 02/02/17 04:35 02/02/17 04:35 WBC 4.6 RBC 3.47 L Hgb 10.7 L Hct 32.1 L MCV 93 MCH 30.8 MCHC 33.2 RDW 13.0 Plt Count 207 Seg Neutrophils % 50.7 Lymphocytes % 30.8 Monocytes % 13.4 H Eosinophils % 4.1 Basophils % 1.0 Absolute Neutrophils 2.3 Absolute Lymphocytes 1.4 Absolute Monocytes 0.6 Absolute Eosinophils 0.2 Absolute Basophils 0.0 02/01/17 02/01/17 02/01/17 05:04 11:12 17:20 Creatine Kinase CK-MB (CK-2) 0.42 0.44 0.33 Troponin I 0.029 0.014 < 0.012 02/02/17 04:35 Creatine Kinase 64 CK-MB (CK-2) Troponin I Impressions: Chest X-Ray 01/31/17 20:39 IMPRESSION: NO ACUTE RADIOGRAPHIC FINDING IN THE CHEST. Qualifiers PATEINT BEING DISCHARGED WITH ANY OF THE FOLLOWING DIAGNOSIS?: No Plan Discharge Plan: Home with family Time Spent: Less than 30 Minutes
[2017-02-13] MEDS ORDERED: CYANOCOBALAMIN (VITAMIN B-12) INJ 1000 MCG/1 ML VIAL IM PRN (05:00)
== END 2017-02-02 15:44 | disposition home or self-care (01) ==
LOC: ER 18:39 → EH 02-01 02:27 → 4N 02-01 05:42
PROVIDERS: ADMIT Internal Medicine; ATTEND Internal Medicine
DX: R07.89 Other chest pain (principal); I16.0 Hypertensive urgency; I12.9 Hypertensive chronic kidney disease with stage 1 through stage 4 chronic kidney disease, or unspecified chronic kidney disease; N18.3 Chronic kidney disease, stage 3 (moderate); K21.9 Gastro-esophageal reflux disease without esophagitis; E78.5 Hyperlipidemia, unspecified; F43.21 Adjustment disorder with depressed mood; Z85.3 Personal history of malignant neoplasm of breast
CPT/HCPCS: 93005 ×2; 99285; 36415 ×3; 82553 ×2; 82550 ×2; 85025 ×2; 80053; 81001; 84484 ×2; 80061; 93017; 71010; 78452; 93010 ×2; G0378 ×3; A9500; J2785; A9270 ×17; J3490 ×2; J7030; J0280; Q9969

== ENCOUNTER → 2017-11-02 | Outpatient (CLI) | payer MEDICARE, BC ==
--- NOTE | 2017-11-02 16:22 | RADIOLOGY REPORT (SQ) ---
EXAM DESCRIPTION: VENOUS UNILATERAL LOWER COMPLETED DATE/TIME: 11/02/2017 4:15 pm REASON FOR STUDY: PAIN M79.661 PAIN IN RIGHT LOWER LEG COMPARISON: None. TECHNIQUE: Dynamic and static shanks scale and color images acquired of the right leg venous system. S elected spectral images acquired with additional compression and augmentation maneuvers. The contrala teral common femoral vein and saphenofemoral junction were also imaged. Images stored on PACS. LIMITATIONS: None. FINDINGS: COMMON FEMORAL: Normal phasicity, compression and augmentation. No visualized echogenic ma terial on shanks scale. No defects on color images. FEMORAL: Normal compression and augmentation. No visualized echogenic material on shanks scale. No defe cts on color images. POPLITEAL: Normal compression, augmentation. No visualized echogenic material on shanks scale. No defec ts on color images. CALF VESSELS: Normal compression, augmentation. No visualized echogenic material on shanks scale. No de fects on color images. GSV and SSV: Normal compression, augmentation. No visualized echogenic material on shanks scale. No def ects on color images. ANY DEEP VENOUS INSUFFICIENCY: Not evaluated. ANY EVIDENCE OF POPLITEAL CYST: No. OTHER: No other significant finding. CONTRALATERAL COMMON FEMORAL VEIN AND SAPHENOFEMORAL JUNCTION: Normal phasicity, compression and augmentation. No visualized echogenic material on shanks scale. No de fects on color images. IMPRESSION: NO EVIDENCE DVT OR SVT IN THE RIGHT LEG. TECHNICAL DOCUMENTATION: JOB ID: [id number] [employer]- All Rights Reserved
== END ==
LOC: SP 15:33
PROVIDERS: ATTEND Orthopaedic Surgery
DX: M79.661 Pain in right lower leg (principal); R60.9 Edema, unspecified
CPT/HCPCS: 93971

== ENCOUNTER → 2017-12-08 | Day surgery (SDC) | payer MEDICARE, BC ==
[~2017-12-08] MED LIST: BUPIVACAINE HCL 0.5 % INJ/PF 30 ML SDV ONE; LIDOCAINE 1% INJ-PF (10 MG/ML) 30 ML SDV ONE
--- NOTE | 2017-12-08 09:03 | Operative Report ---
PROCEDURE: KNEE RADIOFREQUENCY BILATERAL under ultrasound guidance Preoperative Diagnosis: BILATERAL knee osteoarthritis Postoperative Diagnosis:BILATERAL knee osteoarthritis 1. Superolateral genicular branch from the vastus lateralis 2. Superomedial genicular branch from the vastus medialis 3. Inferomedial genicular branch from the saphenous nerve 4. Medial retinacular branch from the vastus intermedius DATE OF PROCEDURE: 12/08/2017 ANESTHESIA: Local anesthesia COMPLICATIONS: None reported PROCEDURE IN DETAIL: Hx/PE/meds/allergies/applicable labs reviewed. No changes and no contraindications were found. Full description of the procedure was provided including benefits as well as possible complications including transient increased pain, stomach irritation, mood alteration, transient weakness or parasthesias as well as more serious nerve injury, bleeding, infection or allergic reaction. Informed consent was obtained and documented. The patient was brought to the procedure room and placed on the exam table in a comfortable supine position. The place for needle placement was obtained by manual palpation with ultrasound confirmation. The sterile field was prepared by chloroprep and sterile drapes. Local anesthesia superficial and deep was provided by local infiltration of 2% lidocaine. A 17g 50mm radiofrequency introducer needle with a 4 mm active tip was placed overlying the BILATERAL knee joint and using ultrasound guidance the needle was advanced to a bony endpoint on the superiolateral portion of the femoral condyle of the BILATERAL knee. A second needle was advanced to a bony endpoint on the superiomedial portion of the femoral condyle. A third needle was then placed over the inferiomedial portion of the tibial condyle until a bony endpoint was met. 4th needle placed 3mm above the patella. Attempted aspiration yielded no blood. Transverse ultrasound views showed all the needles at 50% depth of the femur and tibia. Motor stimulation was tested at 2.0 volts with no leg movement. Images were saved in AP and lateral. A mixture consisting of 0.5% bupivacaine was slowly injected. Then a radiofrequency ablation of each of the geniculate nerves were done at 80 degrees Celsius for 2 minutes and 30 seconds each. The needles were withdrawn. The patient tolerated the procedure well. After observation the patient was discharged with instructions and follow up. They were also provided contact information to call regarding any concerning symptoms or questions. IMPRESSION: 1. Successful geniculate BILATERAL knee radiofrequency ablation was performed. 2. The patient was given prescription of home medicines. 3. RTC in 1-2 week(s).
== END ==
LOC: RAD 08:07
PROVIDERS: ATTEND Family Medicine
PROC: 3E0T3TZ Introduction of Destructive Agent into Peripheral Nerves and Plexi, Percutaneous Approach (ICD-10-PCS; principal; 2017-12-08)
DX: M17.0 Bilateral primary osteoarthritis of knee (principal)
CPT/HCPCS: 64640 ×3; J3490 ×2

== ENCOUNTER → 2018-04-10 | Outpatient (CLI) | payer MEDICARE, BC ==
[2018-04-10 12:39] LABS: APPEARANCE,URINE CLEAR; BILIRUBIN,URINE NEGATIVE (NEGATIVE); COLOR,URINE YELLOW; GLUCOSE, URINE NEGATIVE (NEGATIVE); KETONES,URINE NEGATIVE (NEGATIVE); LEUKOCYTE ESTERASE,URINE NEGATIVE (NEGATIVE); NITRITE,URINE NEGATIVE (NEGATIVE); PROTEIN,URINE NEGATIVE (NEGATIVE); URINE SPECIFIC GRAVITY 1.012; UROBILINOGEN,URINE NEGATIVE mg/dL (<2.0)
== END ==
LOC: LAB 12:15
PROVIDERS: ATTEND Internal Medicine
DX: R31.9 Hematuria, unspecified (principal)
CPT/HCPCS: 81001

== ENCOUNTER 2019-04-18 18:06 | Emergency (ER) | payer MEDICARE, BC | END 2019-04-18 18:20 | disposition left against medical advice (07) | LOC: ER 18:06 | DX: Z53.21 Procedure and treatment not carried out due to patient leaving prior to being seen by health care provider (principal); W54.0XXA Bitten by dog, initial encounter ==